=== PATIENT | male | born 1965 | race Hispanic/Latino ===

== ENCOUNTER 2020-09-10 09:45 | Emergency (ER) | payer BC, OTHER ==
[~2020-09-10] VITALS: Ht 160 cm; Wt 104.3 kg
[2020-09-10] MEDS ORDERED: HYDROCODONE/APAP 10MG-325MG TAB PO STA (10:00)
[2020-09-10] MEDS ORDERED: HYDROCODONE/APAP 10MG-325MG TAB ONE (10:25)
[2020-09-10] MEDS ORDERED: HYDROCODON-ACE1 EAC9 PO (10:30)
== END 2020-09-10 10:37 | disposition home or self-care (01) ==
LOC: ER 09:50
DX: M54.5 Low back pain (principal); I10 Essential (primary) hypertension; E11.9 Type 2 diabetes mellitus without complications; G89.29 Other chronic pain
CPT/HCPCS: 99282

== ENCOUNTER 2024-01-07 13:22 | Emergency (ER) | payer BC ==
[~2024-01-07] VITALS: Ht 162.6 cm; Wt 74.8 kg
[~2024-01-07 13:22] MED LIST: ATORVASTATIN CA20 MG PO; BLOOD GLUCOSE1 EAC1; GLYBURIDE-METF1 EACH PO; GLYBURIDE5 MG PO; HYDROCODON-ACE1 EAC9 PO; INSULIN AS100 UNIT/2 SC; LANTUS 3ML100 UNITS/ SC; METFORMIN HCL500 M1 PO; POTASSIUM CHLO10 ME1 PO; PREDNISONE20 MG PO; PRILOSEC OTC20 MG
[2024-01-07 14:03] VITALS: TEMP 98.5
[2024-01-07 14:22] LABS: BASOPHILS % 0.2 % (0.0-1.0); EOSINOPHILS % 0.4 % (0.0-6.0); HEMATOCRIT 40.2 % (38.2-49.6); HEMOGLOBIN 13.1 g/dL (14.0-18.0); LYMPHOCYTES # (AUTO) 1.3 (1.0-3.2); MEAN CORPUSCULAR HEMOGLOBIN 27.6 pg (28-32); MEAN CORPUSCULAR HGB CONC 32.6 g/dL (31-35); MEAN CORPUSCULAR VOLUME 84.6 fL (81-99); MONOCYTES # (AUTO) 0.5 (0.2-0.8); MONOCYTES % 8.8 % (4.4-11.3); NEUTROPHILS # (AUTO) 3.5 (2.1-6.9); NEUTROPHILS % 66.4 % (38.7-80.0); PLATELET COUNT 220 x10e3/uL (140-360); RED BLOOD COUNT 4.75 x10e6/uL (4.3-5.7); WHITE BLOOD COUNT 5.33 x10e3/uL (4.8-10.8)
[2024-01-07 14:34] LABS: ALBUMIN 4.3 g/dL (3.5-5.0); ALBUMIN/GLOBULIN RATIO 1.5 (0.8-2.0); ANION GAP 16.8 mmol/L (8-16); BILIRUBIN,TOTAL 0.3 mg/dL (0.2-1.2); CREATININE, SERUM 0.85 mg/dL (0.72-1.25); POTASSIUM 3.8 mmol/L (3.5-5.1); TOTAL PROTEIN 7.1 g/dL (6.5-8.1)
[2024-01-07] MEDS: SODIUM CHLORIDE 0.9% 1000ML 1,000 ML IV STA (14:42)
[2024-01-07 15:30] VITALS: PULSE 57; RESP 16
[2024-01-07] MEDS ORDERED: LANTUS 3ML100 UNITS/ SC (15:38)
[2024-01-07] MEDS: INSULIN GLARGINE 100 UNITS/ML VIAL SQ ONE (16:01)
[2024-01-07 16:09] VITALS: BP 127/78; PULSE 60; RESP 16; O2SAT 100
== END 2024-01-07 16:09 | disposition home or self-care (01) ==
LOC: ER 13:27
DX: E11.65 Type 2 diabetes mellitus with hyperglycemia (principal); E78.5 Hyperlipidemia, unspecified; K21.9 Gastro-esophageal reflux disease without esophagitis; M54.9 Dorsalgia, unspecified; G89.29 Other chronic pain
CPT/HCPCS: 36415; 80053; 82948; 85025; 99283; J1815; J7030